=== PATIENT | female | born 2000 | race Caucasian/White ===

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

== ENCOUNTER 2019-02-19 22:27 | Emergency (ER) | payer OTHER ==
[~2019-02-19] VITALS: Ht 165.1 cm; Wt 70.5 kg
[~2019-02-19 22:27] MED LIST: CRYSELLE 30 MCG1 TAB PO; MEDROL 4MG DOSPA4 MG PO; PROAIR HFA0.09 MG/AC IH; ZITHROMAX Z PA250 MG PO
[2019-02-19 22:42] VITALS: BP 132/78; TEMP 97.4
[2019-02-20 00:03] LABS: COLLECTION METHOD CLEAN CATCH
[2019-02-20 00:14] LABS: MUCOUS Present /lpf; PH 6 (5-8); URINE APPEARANCE Hazy; URINE BACTERIA Rare /hpf; URINE BILIRUBIN Negative (NEGATIVE); URINE BLOOD Negative (NEGATIVE); URINE COLOR Yellow; URINE GLUCOSE Negative (NEGATIVE); URINE KETONE Negative (NEGATIVE); URINE LEUKOCYTE ESTERASE Trace (NEGATIVE); URINE NITRATE Negative (NEGATIVE); URINE PROTEIN(semi-quant) Negative (NEGATIVE); URINE RBC 0-2 /hpf
[2019-02-20] MEDS ORDERED: NORCO 325 MG-51 TAB PO (02:17)
[2019-02-20] MEDS ORDERED: FLEXERIL 1010 MG/TAB PO (02:17)
[2019-02-20 02:25] VITALS: PULSE 92
== END 2019-02-20 02:25 | disposition home or self-care (01) ==
LOC: COL.ER 22:27
PROVIDERS: Emergency Medicine
DX: M54.5 Low back pain (principal)
CPT/HCPCS: J3010